=== PATIENT | female | born 1935 | race Caucasian/White ===

== ENCOUNTER 2017-04-19 14:15 | Outpatient (CLI) | payer OTHER ==
--- NOTE | 2017-04-19 15:44 | DIAGNOSTIC IMAGING REPORT ---
PROCEDURE: US VENOUS - LEFT EXT INDICATION: LEFT LEG PAIN AND SWELLING TECHNIQUE: Duplex sonography of the deep venous system in the left lower extremity was performed. Compression and augmentation techniques were used. COMPARISON: None. FINDINGS: Normal compression of the greater saphenous, common femoral, superficial femoral, popliteal and posterior tibial veins. Peroneal veins not well visualized. Normal augmentation. There is no evidence of deep venous thrombosis. Chronic superficial thrombophlebitis is in varicose veins of the distal medial calf and anterior distal leg. IMPRESSION: 1. No evidence of a left lower extremity DVT 2. 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
== END 2017-04-19 23:00 ==
LOC: US SRH 14:15 → LAB SRH 14:15 → US SRH 14:30
DX: I80.02 Phlebitis and thrombophlebitis of superficial vessels of left lower extremity (principal); E53.8 Deficiency of other specified B group vitamins